=== PATIENT | female | born 1975 | race Caucasian/White ===

== ENCOUNTER 2016-05-14 15:23 | Emergency (ER) | payer SELFPAY | END 2016-05-14 19:25 | disposition home or self-care (01) | LOC: D.ER 15:23 | DX: S01.01XA Laceration without foreign body of scalp, initial encounter (principal); W14.XXXA Fall from tree, initial encounter; Y93.89 Activity, other specified; Y92.830 Public park as the place of occurrence of the external cause; S22.089A Unspecified fracture of T11-T12 vertebra, initial encounter for closed fracture; F17.200 Nicotine dependence, unspecified, uncomplicated; F32.9 Major depressive disorder, single episode, unspecified ==